=== PATIENT | female | born 1950 | race Caucasian/White ===

== ENCOUNTER 2016-10-26 11:15 | Outpatient (RCR) | payer MEDICARE, OTHER ==
[~2016-10-26 11:15] MED LIST: ALEVE 220MG220 MG PO; BIRTH CONTROL; FLEXERIL10 MG PO; PERCOCET 5/321 UDTAB PO; [UNRECOGNIZED DRUG - REMARK]
== END 2016-10-31 ==
LOC: WSPT
DX: M75.81 Other shoulder lesions, right shoulder (principal)
CPT/HCPCS: G8984-GP; G8985-GP

== ENCOUNTER → 2017-03-15 | Outpatient (CLI) | payer MEDICARE, OTHER | LOC: MC.RAD 03-12 10:40 | DX: Z12.31 Encounter for screening mammogram for malignant neoplasm of breast (principal) ==

== ENCOUNTER → 2019-08-08 | Outpatient (CLI) | payer MEDICARE ==
[~2019-08-08] MED LIST changes: +NORCO 325 MG-51 TAB PO; +VESICARE 5MG5 MG PO
== END ==
LOC: MC.RAD 09:00
DX: Z12.31 Encounter for screening mammogram for malignant neoplasm of breast (principal)

== ENCOUNTER 2019-11-06 10:00 | Outpatient (RCR) | payer MEDICARE | END 2019-11-17 11:35 | disposition home or self-care (01) | LOC: WSOT 10:00 | DX: M18.12 Unilateral primary osteoarthritis of first carpometacarpal joint, left hand (principal) ==

== ENCOUNTER → 2020-08-18 | Outpatient (CLI) | payer MEDICARE | LOC: MC.RAD 13:08 | DX: Z12.31 Encounter for screening mammogram for malignant neoplasm of breast (principal) ==